=== PATIENT | female | born 1960 | race Two or more races ===

== ENCOUNTER → 2024-09-28 | Emergency (ER) | payer OTHER ==
[~2024-09-28] VITALS: Ht 157.5 cm; Wt 54.0 kg
[2024-09-28 14:22] VITALS: BP 158/79; TEMP 98.3; O2SAT 99
== END | disposition home or self-care (01) ==
LOC: ER 14:40
DX: I10 Essential (primary) hypertension (principal); R51.9 Headache, unspecified; F17.200 Nicotine dependence, unspecified, uncomplicated; Z99.2 Dependence on renal dialysis